=== PATIENT | female | born 1970 | race Caucasian/White ===

== ENCOUNTER 2023-03-22 14:58 | Outpatient (OUT) | payer BC, MEDICARE, SELFPAY ==
--- NOTE | 2023-03-22 15:10 | XR_ITS ---
The [address] [address] Patient Name: SHEELA WEBBER MRN: [id number] date: 1970 Sex: F Assigned Patient Location: [facility] Current Patient Location: RAD Accession/Order Number: [id number] Exam Date: 03/22/2023 15:14 Report Date: 03/22/2023 16:05 At the request of: MATTY MUELLER Procedure: XR chest 2V EXAM: XR chest 2V HISTORY: Cough R05.9 COMPARISON: 06/26/2015 TECHNIQUE: Upright PA and lateral chest x-ray FINDINGS: Focal atelectasis or infiltrate is seen at the left lung base. The left upper and the right lung are clear. The heart is not enlarged. Increasing prominence of the right hilum is noted, particularly in the infrahilar region, suggesting a mass or adenopathy. Hardware projects over the cervical spine, and there is mild scoliosis in the spine. XR/XR chest 2V IMPRESSION: Focal atelectasis or infiltrate is seen at the left lung base. There is no evidence of overt cardiac decompensation. There is increasing prominence of the right hilum, particularly along the inferior aspect. The etiology is uncertain. Further evaluation this patient with a CT scan of the chest is recommended. Electronically authenticated by: ANNA RESENDIZ Date: 03/22/2023 16:05
--- NOTE | 2023-03-22 15:10 | XR_ITS ---
The [address] [address] Patient Name: SHEELA WEBBER MRN: [id number] date: 1970 Sex: F Assigned Patient Location: [facility] Current Patient Location: Accession/Order Number: [id number] Exam Date: 03/22/2023 15:14 Report Date: 03/23/2023 07:39 At the request of: MATTY MUELLER Procedure: XR sinus min 3V EXAMINATION: XR sinus min 3V HISTORY: Sinus Congestion R09.81 COMPARISON: No relevant comparison available. FINDINGS: MAXILLARY: No mucosal thickening or fluid level. ETHMOID: No mucosal thickening or fluid level. FRONTAL: No mucosal thickening or fluid level. SPHENOID: No mucosal thickening or fluid level. OTHER: Negative. XR/XR sinus min 3V IMPRESSION: Clear paranasal sinuses Electronically authenticated by: BREANNE GALVAN Date: 03/23/2023 07:39
== END 2023-03-22 14:59 | disposition home or self-care (01) ==
PROVIDERS: PCP Family Medicine; Visit Provider Family Medicine
DX: R09.81 Nasal congestion (principal); R05.9 Cough, unspecified; R91.8 Other nonspecific abnormal finding of lung field
CPT/HCPCS: 70220; 71046

== ENCOUNTER 2023-06-22 07:32 | Outpatient (RCR) | payer BC, MEDICARE, SELFPAY ==
[2023-06-21 17:38] LABS: Hematocrit 20.9 % (36.0-48.0)
[2023-06-22] VITALS (8 sets, daily range): BP systolic 97–147; BP diastolic 58–82; PULSE 78–98; RESP 14–16; TEMP 36.6–37.1; O2SAT 90–96
--- NOTE | 2023-06-22 10:44 | PC.NURSE ---
0913: Pt to [facility] via w/c accompanied by . Assisted pt. to chair. Pt. with port to right chest wall and already accessed from chemotherapy 06/21/23. Site without redness or edema. Flushes easily and able to aspirate blood easily. Pt. denies c/o pain at insertion site. Blood drawn for ordered labs. VSS. Brief h&p obtained. Allergies verified. Pt. given blanket, pillow and diet Pepsi per request. Blood consent obtained. Pt. denies quiestions or needs. 1022: First unit PRBC initiated at this time. Pt. without c/o. 1037: Pt. drowsy. VSS. Denies c/o at this time.
--- NOTE | 2023-06-22 11:04 | PC.NURSE ---
[facility] phoned to verify pt. did not need irradiated blood. accounts receivable coordinator, Nae, relays pt. does not need irradiated blood.
--- NOTE | 2023-06-22 11:28 | PC.NURSE ---
Pt. sleeping soundly, arouses easily to name. VSS. Denies c/o. PRBC cont. to infuse without s&s of adverse reaction
--- NOTE | 2023-06-22 11:53 | PC.NURSE ---
1136: First unit PRBC completed without s&s of transfusion reaction. VSS. Pt. remains sleepy. Denies c/o. 1149: Second unit PRBC initiated at this time. No new changes observed.
--- NOTE | 2023-06-22 12:13 | PC.NURSE ---
Awakens to tactile stimuli. Remains drowsy. VSS. Denies needs or c/o. Meal tray or snack offered, pt. declines
--- NOTE | 2023-06-22 12:47 | PC.NURSE ---
Pt. awakens easily to name. VSS. Denies c/o or needs. Lunch or snack offered, pt. declines.
--- NOTE | 2023-06-22 13:34 | PC.NURSE ---
Pt. more alert.VSS. at chairside
--- NOTE | 2023-06-22 14:10 | PC.NURSE ---
1345: Second unit PRBC completed. Pt. without s&s of transfusion reaction. VSS. Port flushed with Heparin flush, port de-accessed. Pt. tolerated without c/o. 1400: Pt. d/c'd via w/c to home with
== END 2023-06-28 23:59 | disposition home or self-care (01) ==
LOC: INF 07:32
PROVIDERS: PCP Family Medicine; Visit Provider Physician Assistant Medical
DX: D64.9 Anemia, unspecified (principal); R53.1 Weakness; R53.83 Other fatigue
CPT/HCPCS: 36415; 36430; 36591; 85014; 85018; 86850; 86900; 86901; P9016

== ENCOUNTER 2023-07-20 07:36 | Outpatient (RCR) | payer BC, MEDICARE, SELFPAY ==
[2023-07-19 12:51] LABS: Hemoglobin 6.8 g/dL (12.0-16.0)
[2023-07-19 12:52] LABS: Hematocrit 21.2 % (36.0-48.0)
--- NOTE | 2023-07-20 08:02 | PC.NURSE ---
0750 arrival ambulatory to chair 3. alert oriented, no complaints offered. Rt chest port accessed using 19 ga montilla understerile technique, excellent blood return, flushes well. site covered with op-site. patient tolerated well.
--- NOTE | 2023-07-20 08:03 | PC.NURSE ---
instructed on signs and smptoms of reaction to blood products. instructed to notify staff for any chest pain shortness of breath, flank pain itching chilling etc. verbalized understanding. Signifcant other at bedside
[2023-07-20] MEDS: ACETAMINOPHEN 325 MG TABLET 650 MG PO (08:06)
[2023-07-20] MEDS: 0.9 % SODIUM CHLORIDE 250 ML 500 ML IV (08:06)
[2023-07-20] MEDS: DIPHENHYDRAMINE HCL 25 MG CAPSULE PO (08:12)
[2023-07-20 08:13] VITALS: BP 100/68; PULSE 99; RESP 18; TEMP 36.9; O2SAT 90
--- NOTE | 2023-07-20 08:15 | PC.NURSE ---
alert oriented, lungs clear heart tones strong regular.
--- NOTE | 2023-07-20 08:18 | PC.NURSE ---
817 1st unit of prbc initiated
[2023-07-20 08:35] VITALS: BP 107/72; PULSE 94; RESP 18; TEMP 37.2; O2SAT 90
--- NOTE | 2023-07-20 08:42 | PC.NURSE ---
0835 tolerating transfusion without s/s of reaction, increased rate to 240ml/hr
[2023-07-20 08:50] VITALS: BP 115/72; PULSE 91; RESP 16; TEMP 37.1; O2SAT 91
--- NOTE | 2023-07-20 09:02 | PC.NURSE ---
0850 prbc's infusing without difficulty. [place] blood warmer in use temp 41 degree celcius. patient resting reclined in chair, eyes shut respirations with ease.
--- NOTE | 2023-07-20 09:39 | PC.NURSE ---
0935 1st unit prbc's infused, patient tolerated well, ns flush started.
[2023-07-20 09:40] VITALS: BP 116/76; PULSE 87; RESP 16; TEMP 37; O2SAT 92
--- NOTE | 2023-07-20 09:44 | PC.NURSE ---
0944 2nd unitof prbc's initiated. patient offers no complaints,doses off and on in recliner
[2023-07-20 09:59] VITALS: BP 114/73; PULSE 88; RESP 18; TEMP 37.1
--- NOTE | 2023-07-20 10:11 | PC.NURSE ---
1000 tolerating prbc's without difficulty, awake, alert oriented, watching tv.
--- NOTE | 2023-07-20 11:17 | PC.NURSE ---
1115 second unit of prbc's infused, NSS flush started. patient taken to bathroom voids qs. lungs clear, heart tones regular.
== END 2023-07-28 23:59 | disposition home or self-care (01) ==
LOC: INF 07:36
PROVIDERS: PCP Family Medicine
DX: D64.9 Anemia, unspecified (principal)
CPT/HCPCS: 36415; 36430; 85014; 85018; 86850; 86900; 86901; P9016

== ENCOUNTER 2023-08-24 07:42 | Outpatient (RCR) | payer BC, MEDICARE, SELFPAY ==
[2023-08-23 15:59] LABS: Hematocrit 24.3 % (36.0-48.0); Hemoglobin 7.5 g/dL (12.0-16.0)
[2023-08-24] MEDS: DIPHENHYDRAMINE HCL 25 MG CAPSULE PO (08:00)
[2023-08-24 08:04] VITALS: BP 85/53; PULSE 98; RESP 18; TEMP 37.1
[2023-08-24] MEDS: 0.9 % SODIUM CHLORIDE 250 ML 20 ML IV (08:11)
--- NOTE | 2023-08-24 08:16 | PC.NURSE ---
0750 Arrival per wheelchair with accompanied. Alert oriented, patient stands and gets in recliner, given warm blanket and pillow, given something to drink. Rt chest port accessed utilizing #19 ga montilla, excellent blood return, connected to NS at kvo utilzing blood warmer, Lungs clear to auscultation, heart tones strong and regular. No peripheral edema noted 0805 Prbc's initiated, at 80 ml hr. instructed to notify staff for any chest pain itching, shortness of bread, hives etc to notify staff, verbalizing understading. 0815 leaves at this time.
[2023-08-24 08:19] VITALS: BP 96/64; PULSE 92; RESP 18; TEMP 37.1; O2SAT 92
[2023-08-24 08:20] VITALS: BP 101/69; PULSE 80; RESP 18; TEMP 36.6; O2SAT 95
--- NOTE | 2023-08-24 08:22 | PC.NURSE ---
0820 Tolerating blood transfusion without difficulty.
--- NOTE | 2023-08-24 09:03 | PC.NURSE ---
0825 Rate increased to 200 ml hr. tolerating prbc's without difficulty. 0905 vs obtained, resting quietly in recliner, prbc's infusing without any s/s of rxn.
[2023-08-24 09:20] VITALS: BP 123/68; PULSE 80; RESP 18; TEMP 36.5
--- NOTE | 2023-08-24 09:55 | PC.NURSE ---
0953 PRBC's infused, tolerated well, flush started. returns
--- NOTE | 2023-08-24 10:03 | PC.NURSE ---
1003 Up to bathroom, assists.
[2023-08-24] MEDS: HEPARIN SODIUM (PORCINE) PF LOCK FLUSH 500 UNIT/5 ML SYRINGE IV (10:15)
--- NOTE | 2023-08-24 10:26 | PC.NURSE ---
1020 Port acath flushed with 30 ml of ns followed by hep lock flush, deaccessed covered with cotton ball and bandaid, tolerated well. released per wheelchair with
== END 2023-08-24 10:30 | disposition home or self-care (01) ==
LOC: INF 07:42
PROVIDERS: PCP Family Medicine; Visit Provider Physician Assistant Medical
DX: D64.9 Anemia, unspecified (principal)
CPT/HCPCS: 36415; 36430; 85014; 85018; 86850; 86900; 86901; P9016

== ENCOUNTER 2023-09-07 07:28 | Outpatient (RCR) | payer BC, MEDICARE, SELFPAY ==
[2023-09-06 13:26] LABS: Hematocrit 24.5 % (36.0-48.0); Hemoglobin 7.9 g/dL (12.0-16.0)
[2023-09-07 10:00] VITALS: BP 94/57; PULSE 97; RESP 18; O2SAT 92
--- NOTE | 2023-09-07 10:03 | PC.NURSE ---
0950 Arrival per wheelchair to chair 2. Alert oriented, accompanies. Rt chest port accessed using 19 ga montilla needle. excellent blood return noted. covered with tegaderm. IV fluids of NS at kvo, blood warmer in use temp 41 degree celsius. instructed on s/s of reaction shortnes of breath chest pain itching etc instructed to call if experiences any. verbalizes understanding. Lungs have crackles rt base, heart tones strong and regular.
[2023-09-07] MEDS: DIPHENHYDRAMINE HCL 25 MG CAPSULE PO (10:07)
[2023-09-07] MEDS: ACETAMINOPHEN 325 MG TABLET 650 MG PO (10:07)
[2023-09-07 10:08] VITALS: BP 94/57; PULSE 97; RESP 18; TEMP 36.6; O2SAT 92
--- NOTE | 2023-09-07 10:16 | PC.NURSE ---
1015 unit PRBC's initiated
[2023-09-07 10:30] VITALS: BP 94/55; PULSE 94; RESP 18; TEMP 36.8; O2SAT 92
--- NOTE | 2023-09-07 10:38 | PC.NURSE ---
1030 tolerating prbc'd without difficulty, rate increased to 200 ml hr, resting quietly in recliner with blanket and pillow,
[2023-09-07] MEDS: 0.9 % SODIUM CHLORIDE 250 ML IV (10:47)
[2023-09-07 11:30] VITALS: BP 98/66; PULSE 89; RESP 18; TEMP 36.6; O2SAT 92
--- NOTE | 2023-09-07 11:33 | PC.NURSE ---
1130 prbc's infused, NSS flush started. Patient tolerated well 1140 flush finished, heparin locked, deaccessed port, bandaid applied, tolerated well. To Bathroom per wheelchair. 1145 Released per wheelchair.
== END 2023-09-28 23:59 | disposition home or self-care (01) ==
LOC: INF 07:28
PROVIDERS: Visit Provider Nurse Practitioner Family
DX: D64.9 Anemia, unspecified (principal)
CPT/HCPCS: 36415; 36430; 85014; 85018; 86850; 86900; 86901; P9016